=== PATIENT | male | born 1975 | race Caucasian/White ===

== ENCOUNTER 2017-12-23 11:10 | Emergency (ER) | payer BC ==
[2017-12-23 11:27] VITALS: BP 111/81
--- NOTE | 2017-12-23 12:12 | EDM.PDOC ---
<Alesia Morales M - Last Filed: 12/23/17 12:15> ED HPI GENERAL MEDICAL PROBLEM - General Chief Complaint: Laceration Stated Complaint: RT FOOT LAC Time Seen by Provider: 12/23/17 12:20 Source of Information: Reports: Patient History Limitations: Reports: No Limitations - History of Present Illness INITIAL COMMENTS - FREE TEXT/NARRATIVE: Patient comes in today with complaint of right foot pain. 10:00, 1 hour prior to arrival, patient kicked the blade of a sickle mower. The blade penetrated the side of his leather cowboy boot. Patient has not had any pain medication. Moving his foot increases pain. Patient does not recall last tetanus vaccine. Onset: Today Onset Date: 12/23/17 Onset Time: 10:00 Duration: Constant Location: Reports: Lower Extremity, Right (Right plantar midfoot) Quality: Reports: Sharp Severity: Moderate Improves with: Reports: None Worsens with: Reports: Movement Context: Reports: Trauma Associated Symptoms: Denies: Fever/Chills, Nausea/Vomiting, Syncope Right Feet Pain Score (Numeric/FACES): 2 - Related Data Allergies Allergy/AdvReac Type Severity Reaction Status Date / Time No Known Allergies Allergy Verified 12/23/17 11:20 Home Meds: Home Meds Ciprofloxacin HCl [Cipro] 500 mg PO BID #14 tablet 12/23/17 [Rx] Past Medical History - Past Health History Medical/Surgical History: Denies Medical/Surgical History Respiratory History: Reports: Asthma Other Respiratory History: in childhood Musculoskeletal History: Reports: Fracture Psychiatric History: Reports: Addiction Other Psychiatric History: states uses chewing tobacco. - Infectious Disease History Infectious Disease History: Reports: Chicken Pox Social & Family History - Tobacco Use Smoking Status *Q: Current Some Day Smoker Years of Tobacco use: 27 Packs/Tins Daily: 0.1 - Caffeine Use Caffeine Use: Reports: Coffee, Tea - Alcohol Use Days Per Week of Alcohol Use: 4 Number of Drinks Per Day: 2 Total Drinks Per Week: 8 - Recreational Drug Use Recreational Drug Use: No ED ROS GENERAL - Review of Systems Constitutional: Reports: No Symptoms Respiratory: Reports: No Symptoms Cardiovascular: Reports: No Symptoms Musculoskeletal: Reports: Other (right foot laceration) Neurological: Reports: No Symptoms ED EXAM, SKIN/RASH Exam: See Below Exam Limited By: No Limitations General Appearance: Alert, WD/WN, No Apparent Distress Respiratory/Chest: No Respiratory Distress Cardiovascular: Regular Rate, Rhythm Skin: Other (3.5 cm laceration of the right plantar midfoot. Adipose tissue visible, no apparent tendon damage. Patient is able to flex and extend all toes. ) Course - Vital Signs Last Recorded V/S: Last Vital Signs Temp 98.5 F 12/23/17 11:15 Pulse 62 12/23/17 11:15 Resp 16 12/23/17 11:15 BP 111/81 12/23/17 11:15 Pulse Ox 98 12/23/17 11:15 - Orders/Labs/Meds Orders: Active Orders 24 hr Category Date Time Status Vaccines to be Administered [RC] PER UNIT ROUTINE Care 12/23/17 13:36 Active cefTRIAXone [Rocephin] 1 gm Med 12/23/17 13:45 Active Lidocaine 1% [Xylocaine 1%] 2.1 ml IM Q24H Medication Orders Ceftriaxone Sodium 1 gm/ (Lidocaine HCl 2.1 ml) 0 gm IM Q24H LETTY Last Admin: 12/23/17 14:05 Dose: 1 inj Meds: Medications Generic Name Dose Route Start Last Admin Trade Name Freq PRN Reason Stop Dose Admin Ceftriaxone Sodium 1 gm/ 0 gm 12/23/17 13:45 12/23/17 14:05 Lidocaine HCl 2.1 ml IM 1 inj Q24H LETTY Administration Discontinued Medications Generic Name Dose Route Start Last Admin Trade Name Freq PRN Reason Stop Dose Admin Diphtheria/Tetanus/Acell Pertussis 0.5 ml 12/23/17 13:34 12/23/17 14:04 Adacel IM 12/23/17 13:35 0.5 ml .ONCE ONE Administration Lidocaine HCl 50 ml 12/23/17 12:22 Xylocaine 1% INJECT 12/23/17 12:23 ONETIME ONE Lidocaine/Epinephrine 20 ml 12/23/17 12:23 12/23/17 14:09 Xylocaine 1% With Epinephrine 1:100,000 INJECT 12/23/17 12:24 20 ml ONETIME ONE Administration Lidocaine/Tetracaine 1 ml 12/23/17 12:22 12/23/17 12:32 Let Soln TOP 12/23/17 12:23 1 ml ONETIME ONE Administration Departure - Departure Disposition: Home, Self-Care 01 Clinical Impression: Laceration - Discharge Information Prescriptions: Ciprofloxacin HCl [Cipro] 500 mg PO BID #14 tablet Instructions: Laceration Care, Adult Referrals: PCP,None [Primary Care Provider] - Forms: ED Department Discharge Additional Instructions: ciprofloxacin 1 tab twice a day for 7 days. Recommend taking this medication with food. Wash the wound with gentle soap and water twice a day. May apply antibacterial ointment such as Neosporin or bacitracin to the wound twice a day. Keep the wound covered. Monitor for signs of infection such as increased swelling, pus or redness. Presents to clinic or the ER should these develop. Have the sutures removed in [address] [facility] is open 8 AM to 5 PM Tuesday through Tuesday and will remove the sutures free call [phone] to schedule with a provider there. Off the foot as much as possible. Use her crutches at home if needed for discomfort and to relieve pressure off the foot. Please return to the ER if your symptoms change or worsen. - My Orders Last 24 Hours: My Active Orders 12/23/17 13:45 cefTRIAXone [Rocephin] 1 gm Lidocaine 1% [Xylocaine 1%] 2.1 ml IM Q24H - Assessment/Plan Last 24 Hours: My Active Orders 12/23/17 13:45 cefTRIAXone [Rocephin] 1 gm Lidocaine 1% [Xylocaine 1%] 2.1 ml IM Q24H <Ana Mariano - Last Filed: 12/23/17 15:07> ED HPI GENERAL MEDICAL PROBLEM - History of Present Illness INITIAL COMMENTS - FREE TEXT/NARRATIVE: I have seen the patient and agree with the HPI as documented by RUSH Kendrick. ED ROS GENERAL - Review of Systems Review Of Systems: See Below ED EXAM, SKIN/RASH Exam: See Below Neurological: Alert, Oriented, Normal Cognition Psychiatric: Normal Affect, Normal Mood Skin: Warm, Dry, Normal Color Location, Skin: Lower Extremity, Right ED SKIN PROCEDURES - Laceration/Wound Repair Right Medial Foot Lac/Wound length In cm: 3.5 Appearance: Subcutaneous, Linear Distal NVT: Neuro & Vascular Intact, No Tendon Injury Anesthetic Type: Other (both local and topical LET used) Local Anesthetic Volume: 3cc Skin Prep: Chlorhexidine (Hibiciens), Saline, Sterile Drape Exploration/Debridement/Repair: Wound Explored Closed with: Sutures Suture Size: 4-0 # of Sutures: 7 Suture Type: Nylon, Interrupted, Simple Sterile Dressing Applied: Nurse Tetanus Status Addressed: Yes Complications: No Course - Re-Assessments/Exams Free Text/Narrative Re-Assessment/Exam: 12/23/17 13:32 I have seen the patient and agree with the HPI, ROS and PE as documented by CAROL KendrickS. Will give Rocephin IM in the ED for prophylaxis coverage. Will start on cipro to cover for pseudomonas. Sutures out in 10 day. Discharge instructions as documented. Departure - Departure Time of Disposition: 13:36 Condition: Good - Discharge Information *PRESCRIPTION DRUG MONITORING PROGRAM REVIEWED*: No *COPY OF PRESCRIPTION DRUG MONITORING REPORT IN PATIENT NICK: No
[2017-12-23] MEDS ORDERED: Lidocaine/EPINEPHrine/Tetracaine Soln 1 ML TOP ONE (12:22)
[2017-12-23] MEDS ORDERED: Lidocaine 1% 50 ML MDV INJECT ONE (12:22)
[2017-12-23] MEDS ORDERED: Lidocaine 1% with EPINEPHrine 1:100,000 20 ML MDV INJECT ONE (12:23)
--- NOTE | 2017-12-23 13:24 | CR ---
Right foot: Four views of the right foot were obtained. Comparison: No prior right foot study. Joint spaces are maintained. No fracture, dislocation or other bony abnormality is seen. No soft tissue radiographic opaque foreign bodies are seen. Impression: 1. No abnormality is seen on right foot exam. Diagnostic code #1
[2017-12-23] MEDS ORDERED: Diphtheria,Pertussis(Acell),Tetanus Vaccine 0.5 ML SDV IM ONE (13:34)
[2017-12-23] MEDS ORDERED: cefTRIAXone 1 GM, Lidocaine 1% 2.1 ML IM SCH ×2 (13:45)
== END 2017-12-23 14:10 | disposition home or self-care (01) ==
LOC: JD.ED 11:10
DX: S91.311A Laceration without foreign body, right foot, initial encounter (principal); F17.210 Nicotine dependence, cigarettes, uncomplicated; Z23 Encounter for immunization; W22.8XXA Striking against or struck by other objects, initial encounter
CPT/HCPCS: 12002; 73630; 90471; 90715; 96372; 99283; A9270; J0696